=== PATIENT | male | born 1930 | race Caucasian/White ===

== ENCOUNTER → 2017-10-23 09:51 | Outpatient (CLI) | payer OTHER ==
[~2017-10-23 09:51] MED LIST: AMOX1TAB12 PO; ASA325 M1; ATACAND4 MG; CARVEDILOL25 MG; JANUMET; LANOXIN0.25 MG; LANTUS100 U/ML SUBCUTANEO; SIMVASTATIN40 MG; ZETIA10 MG; ZITHROMAX TRI-500 MG PO
== END | disposition home or self-care (01) ==
LOC: LAB 09:51
DX: R97.21 Rising PSA following treatment for malignant neoplasm of prostate (principal); D50.0 Iron deficiency anemia secondary to blood loss (chronic); N39.0 Urinary tract infection, site not specified; E78.2 Mixed hyperlipidemia; E10.65 Type 1 diabetes mellitus with hyperglycemia; Z79.4 Long term (current) use of insulin; R82.79 Other abnormal findings on microbiological examination of urine

== ENCOUNTER → 2017-10-23 09:55 | Outpatient (CLI) | payer OTHER | END | disposition home or self-care (01) | LOC: RAD 09:55 | DX: M54.5 Low back pain (principal); E11.42 Type 2 diabetes mellitus with diabetic polyneuropathy; Z79.4 Long term (current) use of insulin; G63 Polyneuropathy in diseases classified elsewhere; I25.10 Atherosclerotic heart disease of native coronary artery without angina pectoris; R53.1 Weakness; E78.2 Mixed hyperlipidemia ==

== ENCOUNTER 2018-02-19 09:31 | Outpatient (CLI) | payer OTHER | END 2018-02-19 09:39 | disposition home or self-care (01) | LOC: LAB 09:31 | DX: E86.0 Dehydration (principal); I25.10 Atherosclerotic heart disease of native coronary artery without angina pectoris; Z79.4 Long term (current) use of insulin; E11.42 Type 2 diabetes mellitus with diabetic polyneuropathy; E78.2 Mixed hyperlipidemia; N30.00 Acute cystitis without hematuria; R82.79 Other abnormal findings on microbiological examination of urine ==

== ENCOUNTER 2018-05-19 17:28 | Emergency (ER) | payer OTHER ==
[~2018-05-19] VITALS: Ht 167.6 cm; Wt 63.5 kg
[2018-05-19] MEDS ORDERED: JANUVIA100 MG (17:55)
[2018-05-19] MEDS ORDERED: GLIMEPIRIDE4 MG (17:56)
[2018-05-19] MEDS ORDERED: WELCHOL625 MG (17:56)
[2018-05-19] MEDS ORDERED: GABAPENTIN400 MG (17:56)
[2018-05-19] MEDS ORDERED: TAMS0.4C (17:57)
[2018-05-19] MEDS ORDERED: CILOSTAZOL50 MG (17:57)
[2018-05-19] MEDS ORDERED: APIDRA100 UNIT/1 (17:58)
== END 2018-05-20 10:52 | disposition home or self-care (01) ==
LOC: ER 17:28 → CPU-OBS 17:38 → ER 05-20 10:52
DX: G45.8 Other transient cerebral ischemic attacks and related syndromes (principal); I50.9 Heart failure, unspecified; R00.0 Tachycardia, unspecified; R07.89 Other chest pain; E11.65 Type 2 diabetes mellitus with hyperglycemia

== ENCOUNTER 2018-06-20 09:48 | Outpatient (CLI) | payer OTHER ==
[~2018-06-20 09:48] MED LIST changes: +APIDRA100 UNIT/1; +CILOSTAZOL50 MG; +GABAPENTIN400 MG; +GLIMEPIRIDE4 MG; +JANUVIA100 MG; +TAMS0.4C; +WELCHOL625 MG
== END 2018-06-20 09:57 | disposition home or self-care (01) ==
LOC: LAB 09:48
DX: D50.0 Iron deficiency anemia secondary to blood loss (chronic) (principal); N39.0 Urinary tract infection, site not specified; I10 Essential (primary) hypertension; E78.2 Mixed hyperlipidemia; E11.65 Type 2 diabetes mellitus with hyperglycemia; Z79.4 Long term (current) use of insulin; N30.00 Acute cystitis without hematuria; R82.79 Other abnormal findings on microbiological examination of urine

== ENCOUNTER 2018-10-04 10:17 | Outpatient (CLI) | payer OTHER | END 2018-10-04 10:25 | disposition home or self-care (01) | LOC: LAB 10:17 | DX: G63 Polyneuropathy in diseases classified elsewhere (principal); Z79.4 Long term (current) use of insulin; E11.42 Type 2 diabetes mellitus with diabetic polyneuropathy; E78.00 Pure hypercholesterolemia, unspecified; I25.10 Atherosclerotic heart disease of native coronary artery without angina pectoris; J31.0 Chronic rhinitis; E78.2 Mixed hyperlipidemia; E11.65 Type 2 diabetes mellitus with hyperglycemia; N39.0 Urinary tract infection, site not specified; D50.8 Other iron deficiency anemias; N30.00 Acute cystitis without hematuria; B96.29 Other Escherichia coli [E. coli] as the cause of diseases classified elsewhere ==

== ENCOUNTER 2018-12-20 10:52 | Outpatient (CLI) | payer OTHER | END 2018-12-20 16:03 | disposition home or self-care (01) | LOC: MRI 10:52 | DX: F09 Unspecified mental disorder due to known physiological condition (principal); F03.90 Unspecified dementia, unspecified severity, without behavioral disturbance, psychotic disturbance, mood disturbance, and anxiety | CPT/HCPCS: 70551 ==

== ENCOUNTER 2019-01-09 10:05 | Outpatient (CLI) | payer OTHER | END 2019-01-09 10:14 | disposition home or self-care (01) | LOC: LAB 10:05 | DX: E11.9 Type 2 diabetes mellitus without complications (principal); N30.00 Acute cystitis without hematuria; N31.2 Flaccid neuropathic bladder, not elsewhere classified; B96.29 Other Escherichia coli [E. coli] as the cause of diseases classified elsewhere; I11.9 Hypertensive heart disease without heart failure; I13.10 Hypertensive heart and chronic kidney disease without heart failure, with stage 1 through stage 4 chronic kidney disease, or unspecified chronic kidney disease; N18.3 Chronic kidney disease, stage 3 (moderate); Z79.84 Long term (current) use of oral hypoglycemic drugs; E11.42 Type 2 diabetes mellitus with diabetic polyneuropathy; I25.10 Atherosclerotic heart disease of native coronary artery without angina pectoris; Z79.4 Long term (current) use of insulin; R00.2 Palpitations; E78.2 Mixed hyperlipidemia ==

== ENCOUNTER 2019-02-18 09:34 | Outpatient (CLI) | payer OTHER | END 2019-02-18 13:46 | disposition home or self-care (01) | LOC: LAB 09:34 | DX: E03.8 Other specified hypothyroidism (principal); E78.49 Other hyperlipidemia; N30.00 Acute cystitis without hematuria; D63.1 Anemia in chronic kidney disease; E11.21 Type 2 diabetes mellitus with diabetic nephropathy; N18.3 Chronic kidney disease, stage 3 (moderate); B96.29 Other Escherichia coli [E. coli] as the cause of diseases classified elsewhere ==

== ENCOUNTER 2019-02-18 10:09 | Outpatient (CLI) | payer OTHER | END 2019-02-18 10:14 | disposition home or self-care (01) | LOC: SONOGRAMA 10:09 | DX: N18.3 Chronic kidney disease, stage 3 (moderate) (principal); R31.29 Other microscopic hematuria; R10.84 Generalized abdominal pain ==

== ENCOUNTER 2019-04-08 13:00 | Outpatient (CLI) | payer OTHER | END 2019-04-08 13:04 | disposition home or self-care (01) | LOC: LAB 13:00 | DX: N30.00 Acute cystitis without hematuria (principal); B96.29 Other Escherichia coli [E. coli] as the cause of diseases classified elsewhere ==

== ENCOUNTER → 2019-04-08 13:18 | Outpatient (CLI) | payer OTHER | END | disposition home or self-care (01) | LOC: TOM 13:18 | DX: N39.0 Urinary tract infection, site not specified (principal); N31.2 Flaccid neuropathic bladder, not elsewhere classified; N13.4 Hydroureter ==

== ENCOUNTER → 2019-04-16 10:28 | Outpatient (CLI) | payer OTHER | END | disposition home or self-care (01) | LOC: LAB 10:28 | DX: G62.89 Other specified polyneuropathies (principal); R20.2 Paresthesia of skin; E03.8 Other specified hypothyroidism; E11.9 Type 2 diabetes mellitus without complications; N18.5 Chronic kidney disease, stage 5; D50.0 Iron deficiency anemia secondary to blood loss (chronic); N39.0 Urinary tract infection, site not specified; E78.2 Mixed hyperlipidemia; E11.65 Type 2 diabetes mellitus with hyperglycemia; Z79.4 Long term (current) use of insulin ==

== ENCOUNTER 2019-04-23 09:43 | Outpatient (CLI) | payer OTHER | END 2019-04-23 13:42 | disposition home or self-care (01) | LOC: LAB 09:43 | DX: C67.9 Malignant neoplasm of bladder, unspecified (principal); I10 Essential (primary) hypertension ==

== ENCOUNTER 2019-04-26 09:30 | Outpatient (CLI) | payer OTHER | END 2019-04-26 09:50 | disposition home or self-care (01) | LOC: LAB 09:30 | DX: C67.9 Malignant neoplasm of bladder, unspecified (principal); B96.29 Other Escherichia coli [E. coli] as the cause of diseases classified elsewhere ==

== ENCOUNTER 2019-05-08 10:52 | Outpatient (CLI) | payer OTHER ==
[2019-05-08] MEDS ORDERED: CANDESARTAN CILE8 MG PO (15:48)
== END 2019-05-08 11:19 | disposition home or self-care (01) ==
LOC: LAB 10:52
DX: N30.00 Acute cystitis without hematuria (principal)

== ENCOUNTER 2019-05-13 21:04 | Emergency (ER) | payer OTHER ==
[~2019-05-13] VITALS: Ht 167.6 cm; Wt 64.0 kg
[~2019-05-13 21:04] MED LIST changes: +CANDESARTAN CILE8 MG PO
== END 2019-05-14 14:42 | disposition home or self-care (01) ==
LOC: ER 21:04
DX: N28.89 Other specified disorders of kidney and ureter (principal); R41.0 Disorientation, unspecified

== ENCOUNTER → 2019-05-19 09:26 | Outpatient (CLI) | payer OTHER | END | disposition home or self-care (01) | LOC: LAB 09:26 | DX: N18.9 Chronic kidney disease, unspecified (principal) ==

== ENCOUNTER 2019-05-21 08:47 | Day surgery (SDC) | payer OTHER | END 2019-05-21 17:10 | disposition home or self-care (01) | LOC: CIR.AMB 08:47 | DX: C67.2 Malignant neoplasm of lateral wall of bladder (principal) ==

== ENCOUNTER → 2019-05-26 09:34 | Outpatient (CLI) | payer OTHER | END | disposition home or self-care (01) | LOC: LAB 09:34 | DX: D62 Acute posthemorrhagic anemia (principal); E78.49 Other hyperlipidemia ==

== ENCOUNTER 2019-07-25 10:05 | Outpatient (CLI) | payer OTHER | END 2019-07-25 10:22 | disposition home or self-care (01) | LOC: LAB 10:05 → RAD 10:05 → LAB 10:22 | DX: I11.0 Hypertensive heart disease with heart failure (principal); I25.10 Atherosclerotic heart disease of native coronary artery without angina pectoris; R60.0 Localized edema; J06.9 Acute upper respiratory infection, unspecified ==

== ENCOUNTER → 2019-10-01 09:35 | Outpatient (CLI) | payer OTHER | END | disposition home or self-care (01) | LOC: LAB 09:35 | DX: E78.2 Mixed hyperlipidemia (principal); D50.0 Iron deficiency anemia secondary to blood loss (chronic); N39.0 Urinary tract infection, site not specified; E03.8 Other specified hypothyroidism; E11.65 Type 2 diabetes mellitus with hyperglycemia; Z79.4 Long term (current) use of insulin; R00.2 Palpitations; E11.9 Type 2 diabetes mellitus without complications ==